=== PATIENT | male | born 1940 | race Caucasian/White ===

== ENCOUNTER 2016-10-31 12:02 | Emergency (ER) | payer OTHER ==
[~2016-10-31] VITALS: Ht 175.3 cm; Wt 77.0 kg
[2016-10-31 12:51] LABS: BLOOD UREA NITROGEN 17 mg/dL (7-18)
[2016-10-31 13:29] VITALS: BP 159/85
== END 2016-10-31 14:39 | disposition home or self-care (01) ==
LOC: ED 14:34
DX: I10 Essential (primary) hypertension (principal); I83.018 Varicose veins of right lower extremity with ulcer other part of lower leg; I83.028 Varicose veins of left lower extremity with ulcer other part of lower leg; L97.819 Non-pressure chronic ulcer of other part of right lower leg with unspecified severity; L97.829 Non-pressure chronic ulcer of other part of left lower leg with unspecified severity
CPT/HCPCS: 36415; 80048; 85025; 99284